=== PATIENT | male | born 1955 ===

== ENCOUNTER 2016-09-19 21:06 | Emergency (ER) | payer MEDICAID ==
[~2016-09-19 21:06] MED LIST: ALLERGY4 MG; BACTRIM DS TABL1 TAB PO; CYCLOBENZAPRINE10 M1 PO; METHADONE HCL10 M1 PO; MULTIVITAMIN1 TAB; NAPROSYN250 MG; NATURAL CALCIU500 MG; NEURONTIN300 MG; STOOL SOFTENER100 M3 PO; TRAMADOL HCL50 MG PO; ULTRAM50 M1 PO
[2016-09-19] MEDS ORDERED: PROAIR HFA8.5 GM INH (21:12)
[2016-09-19] MEDS ORDERED: MUCINEX DM ER1 EAC1 PO (21:12)
== END 2016-09-19 21:17 ==
LOC: EDMED 21:06
DX: J44.1 Chronic obstructive pulmonary disease with (acute) exacerbation (principal); I10 Essential (primary) hypertension; F17.210 Nicotine dependence, cigarettes, uncomplicated; Z98.890 Other specified postprocedural states; Z91.012 Allergy to eggs
CPT/HCPCS: J1885